=== PATIENT | female | born 1990 | race African-American/Black ===

== ENCOUNTER 2019-09-22 18:56 | Outpatient (CLI) | payer MEDICAID, OTHER ==
[~2019-09-22] VITALS: Ht 170.2 cm; Wt 75.0 kg
[2019-09-22 19:51] LABS: AMPHETAMINE SCREEN, URINE Negative (Negative); BARBITURATE SCREEN, URINE Negative (Negative); BENZODIAZEPINE SCREEN, URINE Negative (Negative); CANNABINOID SCREEN, URINE Positive (Negative); COCAINE SCREEN, URINE Negative (Negative); METHADONE SCREEN, URINE Negative (Negative); MICROSCOPIC INDICATED; OPIATE SCREEN, URINE Negative (Negative)
[2019-09-22 20:00] VITALS: BP 119/75
[2019-09-23] MEDS ORDERED: LEVE100020 PO (22:42)
[2019-09-23] MEDS ORDERED: ONDA4TAB7 PO (23:04)
== END 2019-09-22 20:20 | disposition home or self-care (01) ==
LOC: LDOP 18:56
PROVIDERS: ATTEND Obstetrics & Gynecology
DX: O26.893 Other specified pregnancy related conditions, third trimester (principal); Z3A.37 37 weeks gestation of pregnancy
CPT/HCPCS: 59025; 80307; 81001; 87086; 99201; G0463

== ENCOUNTER 2019-09-23 22:15 | Outpatient (CLI) | payer MEDICAID ==
[~2019-09-23] VITALS: Ht 170.2 cm; Wt 74.5 kg
[2019-09-23] MEDS ORDERED: LEVE100020 PO (22:42)
[2019-09-23 22:49] LABS: MICROSCOPIC NOT IND
[2019-09-23 22:58] LABS: AMPHETAMINE SCREEN, URINE Negative (Negative); BARBITURATE SCREEN, URINE Negative (Negative); BENZODIAZEPINE SCREEN, URINE Negative (Negative); CANNABINOID SCREEN, URINE Positive (Negative); COCAINE SCREEN, URINE Negative (Negative); METHADONE SCREEN, URINE Negative (Negative); OPIATE SCREEN, URINE Negative (Negative)
[2019-09-23] MEDS ORDERED: ONDA4TAB7 PO (23:04)
== END 2019-09-23 23:44 | disposition home or self-care (01) ==
LOC: LDOP 22:15
PROVIDERS: ATTEND Obstetrics & Gynecology
DX: O26.893 Other specified pregnancy related conditions, third trimester (principal); R10.9 Unspecified abdominal pain; Z3A.37 37 weeks gestation of pregnancy
CPT/HCPCS: 59025; 80307; 81003; 99211; G0463